=== PATIENT | female | born 1955 | race Caucasian/White ===

== ENCOUNTER 2017-08-14 14:34 | Emergency (ER) | payer BC ==
[2017-08-14 15:43] VITALS: BP 140/73
--- NOTE | 2017-08-14 16:54 | UC ---
Pediatric ENT HPI - HPI Summary HPI Summary: C/O maxillary sinus pain with dental pain over the last 5 days. Getting worse. Nasal congestion. - History Of Current Complaint Chief Complaint: UCRespiratory Stated Complaint: SINUS,EAR PAIN Time Seen by Provider: 08/14/17 16:46 Hx Obtained From: Patient Onset/Duration: Sudden Onset, Lasting Days - 5, Worse Since - last night Timing: Constant Severity Initially: Mild Severity Currently: Moderate Pain Intensity: 8 Location: Discrete At: - maxillary sinus Character: Dull, Aching Aggravating Factor(s): Other - chewing Alleviating Factor(s): OTC Medications Associated Signs And Symptoms: Nasal Congestion Prior Treatment: Acetaminophen - Allergies/Home Medications Allergies/Adverse Reactions: Allergies Allergy/AdvReac Type Severity Reaction Status Date / Time MS Diltiazem [Cardizem] Allergy Rash Verified 08/14/17 15:43 MS Influenza Vaccines Allergy Hives Verified 08/14/17 15:43 [Influenza Vaccines] Past Medical History Other History: Atrial Fibrillation - Surgical History Other Surgical History: Cholecystectomy,. C/S x 3. Umbilical hernia repair - Family History Family History of Asthma: No Family History Of Seizure: No - Social History Lives With: - Immunization History Immunizations Up to Date: No Review Of Systems ENT: Other - sinus pain and dental pain All Other Systems Reviewed And Are Negative: Yes Physical Exam Triage Information Reviewed: Yes Vital Signs: Initial Vital Signs Temp 97.2 F 08/14/17 15:39 Pulse 55 08/14/17 15:39 Resp 16 08/14/17 15:39 BP 140/73 08/14/17 15:39 Pulse Ox 100 08/14/17 15:39 Vital Signs Reviewed: Yes Appearance: Well-Appearing, No Pain Distress, Well-Nourished ENT: Positive: Pharynx normal, Nasal congestion - with allergic congestion, TMs normal Neck: Positive: Supple, No Lymphadenopathy Respiratory: Positive: Lungs clear Cardiovascular: Positive: Normal, No Murmur Musculoskeletal: Positive: Normal Neurological: Positive: Normal Psychological: Positive: Normal Pediatric EENT Course/Dx - Differential Dx/Diagnosis Differential Diagnosis/HQI/PQRI: Otitis Media, Pharyngitis, Sinusitis, URI Provider Diagnoses: Allergic rhinitis. Acute sinusitis Discharge - Discharge Plan Condition: Stable Disposition: HOME Prescriptions: Amoxicillin PO (*) [Amoxicillin 875 MG (*)] 875 mg PO BID #20 tab Patient Education Materials: Allergic Rhinitis (ED), Sinusitis (ED), Amoxicillin (By mouth) Referrals: Malgorzata Ritter MD [Primary Care Provider] - Additional Instructions: NEILMED SINUS RINSE: CHECK OUT AT [employer] Saline nasal wash helps with mucous, allergies and congestion. It can be used up to twice a day or only as needed. Use lukewarm tap water. It does not have to be sterilized or distilled water. Do 1/3 on each side and snort out of both nostrils. Repeat the process with 1/6 of the bottle on each side with snorting in between to finish the solution in the bottle
== END 2017-08-14 17:09 | disposition home or self-care (01) ==
LOC: UCCORT 14:34
DX: J30.9 Allergic rhinitis, unspecified (principal); J01.00 Acute maxillary sinusitis, unspecified
CPT/HCPCS: 99202; G0463